=== PATIENT | female | born 1985 | race African-American/Black ===

== ENCOUNTER 2016-10-18 23:09 | Emergency (ER) | payer MEDICAID ==
[~2016-10-18] VITALS: Ht 154.9 cm; Wt 111.1 kg
--- NOTE | 2016-10-18 23:28 | NUR ---
PT AMBULATORY TO ER BED 6 PT C/O SOB AND CP X 3 DAYS. PT WITH HX ASTHMA, LAST TOOK ALBUTEROL 7AM TODAY. PT AOX4 SOB NOTED. NO NVD AT THIS TIME. PT NOT DIAPHORETIC. PT GOWNED AND PLACED ON MONITOR. DR. GRAHAM AT BEDSIDE FOR EVAL.
[2016-10-18] MEDS ORDERED: predniSONE 20 MG TABLET ONE (23:30)
--- NOTE | 2016-10-18 23:32 | NUR ---
RT CALLED FOR BREATHING TX.
[2016-10-18] MEDS ORDERED: ALBUTEROL FS 2.5 MG/3 ML VIAL.NEB ONE (23:37)
[2016-10-18] MEDS ORDERED: IPRATROPIUM NEB FS 0.5 MG/2.5 ML AMPUL.NEB ONE (23:38)
--- NOTE | 2016-10-18 23:38 | NUR ---
XRAY AT BEDSIDE
--- NOTE | 2016-10-18 23:45 | NUR ---
RT AT BEDSIDE FOR BREATHING TX.
[2016-10-19] MEDS ORDERED: ALBUTEROL FS 2.5 MG/3 ML VIAL.NEB NEB ONE
[2016-10-19] MEDS ORDERED: predniSONE 20 MG TABLET PO ONE
[2016-10-19] MEDS ORDERED: IPRATROPIUM NEB FS 0.5 MG/2.5 ML AMPUL.NEB NEB ONE
--- NOTE | 2016-10-19 00:38 | NUR ---
Patient discharged to home in stable condition. Written and verbal after care instructions given. Patient verbalizes understanding of instruction. ambulatory with a steady gait.
[2016-10-19 00:39] VITALS: BP 134/75
== END 2016-10-19 00:39 | disposition home or self-care (01) ==
LOC: ER 23:11
DX: J45.909 Unspecified asthma, uncomplicated (principal); J98.01 Acute bronchospasm; F41.9 Anxiety disorder, unspecified
CPT/HCPCS: 71010; 94640 ×2; 99283; A4606; J7512; Z7610

== ENCOUNTER 2017-04-05 05:41 | Emergency (ER) | payer MEDICAID ==
[~2017-04-05] VITALS: Ht 154.9 cm; Wt 112.9 kg
--- NOTE | 2017-04-05 05:55 | NUR ---
BB SELF; ASTHMA ATTACK. PT AOX3 RR EVEN AND UNLABORED. SOB NOTED. PT ABLE TO SPEAK IN FULL SENTENCES. NO NVD AT THIS TIME. PT NOT DIAPHORETIC. PT GOWNED AND PLACED ON MONITOR. DR. BERG AT BEDSIDE FOR EVAL. RT CALLED FOR BREATHING TX
[2017-04-05] MEDS ORDERED: DEXAMETHASONE SOD PHOSPHATE 10 MG/ML VIAL ONE (05:58)
[2017-04-05] MEDS ORDERED: DEXAMETHASONE SOD PHOSPHATE 10 MG/ML VIAL IV ONE (06:00)
[2017-04-05] MEDS ORDERED: ALBUTEROL FS 2.5 MG/3 ML VIAL.NEB NEB ONE (06:00)
[2017-04-05] MEDS ORDERED: ALBUTEROL FS 2.5 MG/3 ML VIAL.NEB ONE (06:06)
--- NOTE | 2017-04-05 06:07 | NUR ---
RT AT BEDSIDE FOR BREATHING TX.
--- NOTE | 2017-04-05 06:37 | NUR ---
DR. LEVIN AT BEDSIDE FOR EVAL AFTER BREATHING TX.
--- NOTE | 2017-04-05 06:47 | NUR ---
Patient discharged to home in stable condition. Written and verbal after care instructions given. Patient verbalizes understanding of instruction. ambulatory with a steady gait.
[2017-04-05 06:48] VITALS: BP 124/76
== END 2017-04-05 06:49 | disposition home or self-care (01) ==
LOC: ER 05:42
DX: J45.901 Unspecified asthma with (acute) exacerbation (principal); F41.9 Anxiety disorder, unspecified; F17.200 Nicotine dependence, unspecified, uncomplicated
CPT/HCPCS: A4606; J1100; Z7610

== ENCOUNTER 2017-06-24 18:52 | Emergency (ER) | payer MEDICAID ==
[~2017-06-24] VITALS: Ht 154.9 cm; Wt 113.4 kg
--- NOTE | 2017-06-24 19:00 | NUR ---
PT CAME TO ER AMBULATORY DT ASTHMA; NO SOB/NAD NOTED; EQUAL AND UNLABORED BREATHING. PT DENIES PAIN. ROOM AIR WITH SATURATION WNL. AFEBRILE, VSS WNL.
--- NOTE | 2017-06-24 19:11 | NUR ---
RT PAGED FOR ABENA ESQUEDA.
[2017-06-24] MEDS ORDERED: ALBUTEROL FS 2.5 MG/3 ML VIAL.NEB ONE ×2 (19:17→19:36)
[2017-06-24] MEDS ORDERED: IPRATROPIUM NEB FS 0.5 MG/2.5 ML AMPUL.NEB ONE (19:17)
--- NOTE | 2017-06-24 19:21 | NUR ---
RT AT BEDSIDE FOR HHN TX.
[2017-06-24] MEDS ORDERED: ALBUTEROL FS 2.5 MG/3 ML VIAL.NEB NEB ONE ×2 (19:30→20:00)
[2017-06-24] MEDS ORDERED: IBUPROFEN 600 MG TABLET PO ONE ×2 (19:30→19:35)
[2017-06-24] MEDS ORDERED: IPRATROPIUM NEB FS 0.5 MG/2.5 ML AMPUL.NEB NEB ONE (19:30)
[2017-06-24] MEDS ORDERED: predniSONE 20 MG TABLET PO ONE (19:30)
[2017-06-24] MEDS ORDERED: predniSONE 20 MG TABLET ONE (19:35)
[2017-06-24 20:11] VITALS: BP 119/62
--- NOTE | 2017-06-24 20:11 | NUR ---
Patient discharged to home in stable condition. Written and verbal after care instructions given. Patient verbalizes understanding of instruction. ambulatory with a steady gait
== END 2017-06-24 20:12 | disposition home or self-care (01) ==
LOC: ER 18:53
DX: J45.901 Unspecified asthma with (acute) exacerbation (principal); F41.9 Anxiety disorder, unspecified; F17.200 Nicotine dependence, unspecified, uncomplicated
CPT/HCPCS: 94640 ×2; 99285; A4606; J7512; Z7610

== ENCOUNTER 2018-07-10 15:18 | Emergency (ER) | payer MEDICAID ==
[~2018-07-10] VITALS: Ht 154.9 cm; Wt 125.2 kg
--- NOTE | 2018-07-10 15:31 | NUR ---
PT BIB SELF PT C/O CHEST TIGHTNESS AT 1330 TODAY, NON RADIATING W/DIZZINESS., PT IS AAOX4, NOT IN RESPIRATORY DISTRESS, V/S STABLE, KEPT RESTED AND COMFORTABLE, WILL CONTINUE TO MONITOR.
--- NOTE | 2018-07-10 15:41 | NUR ---
EKG DONE BY [facility], RESULT RELAYED TO DR. BACA.
[2018-07-10] MEDS: ASPIRIN 81 MG TAB.CHEW PO ONE ×2 (16:00→16:21)
[2018-07-10] MEDS ORDERED: ASPIRIN 325 MG TABLET ONE (16:01)
[2018-07-10] MEDS ORDERED: ASPIRIN 81 MG TAB.CHEW ONE (16:03)
[2018-07-10] MEDS ORDERED: ONDANSETRON HCL/PF 4 MG/2 ML VIAL ONE (16:20)
[2018-07-10] MEDS ORDERED: IBUPROFEN 600 MG TABLET PO ONE ×2 (16:20→16:30)
[2018-07-10 16:21] LABS: BASOPHILS # (AUTO) 0.1 /CMM (0.0-0.2); BASOPHILS % (AUTO) 0.6 % (0.0-2.0); EOSINOPHILS % (AUTO) 4.6 % (0.0-6.0); HEMATOCRIT 34 % (33-45); HEMOGLOBIN 10.7 g/dL (11.5-14.8); LYMPHOCYTES # (AUTO) 2.9 /CMM (0.8-4.8); LYMPHOCYTES % (AUTO) 30.9 % (20.0-44.0); MEAN CORPUSCULAR HGB CONC 32 g/dl (31.0-36.0); MEAN CORPUSCULAR VOLUME 74 fL (82-100); MONOCYTES # (AUTO) 0.7 /CMM (0.1-1.30); MONOCYTES % (AUTO) 6.9 % (2.0-12.0); NEUTROPHILS # (AUTO) 5.4 /CMM (1.8-8.9); PLATELET COUNT (AUTO) 317 /CMM (150-450); RED BLOOD CELL COUNT(AUTO) 4.58 MIL/uL (4.0-5.2); WHITE BLOOD COUNT (AUTO) 9.5 K/uL (4.3-11.0)
--- NOTE | 2018-07-10 16:29 | NUR ---
[employer] AT BED SIDE FOR CXRAY.
[2018-07-10] MEDS ORDERED: ONDANSETRON HCL/PF 4 MG/2 ML VIAL IV ONE (16:30)
[2018-07-10 16:31] LABS: CALCIUM, SERUM 8.5 mg/dL (8.5-10.1); CARBON DIOXIDE 30 mmol/L (21-32); CHLORIDE 105 mmol/L (98-107); CREATININE 0.8 mg/dL (0.6-1.3); GLUCOSE 121 mg/dL (74-106); POTASSIUM 4.2 mmol/L (3.5-5.1); SODIUM SERUM 144 mmol/L (136-145); UREA NITROGEN, BLOOD 10 mg/dL (7-18)
[2018-07-10 16:36] LABS: ALANINE AMINOTRANSFERASE 37 U/L (12-78); ALBUMIN 3.4 g/dL (3.4-5.0); ALKALINE PHOSPHATASE 89 U/L (46-116); ASPARTATE AMINOTRANSFERASE 14 U/L (15-37); BILIRUBIN,DIRECT 0.1 mg/dL (0.0-0.2); BILIRUBIN,TOTAL 0.3 mg/dL (0.2-1.0); TOTAL PROTEIN, SERUM 7.5 g/dL (6.4-8.2)
--- NOTE | 2018-07-10 17:42 | NUR ---
IV removed. Catheter intact and site benign. Pressure and 4x4 applied to site. No bleeding noted. Patient discharged to home in stable condition. Written and verbal after care instructions given. Patient verbalizes understanding of instruction.
[2018-07-10 17:57] VITALS: BP 121/79
== END 2018-07-10 17:57 | disposition home or self-care (01) ==
LOC: ER 15:22
DX: R07.89 Other chest pain (principal); F41.9 Anxiety disorder, unspecified; J45.909 Unspecified asthma, uncomplicated; F17.210 Nicotine dependence, cigarettes, uncomplicated; E66.9 Obesity, unspecified
CPT/HCPCS: 36415; 71045; 80048; 80076; 84484; 85025; 85730; 93005; 96374; 99284; A4606; J2405; Z7610